=== PATIENT | male | born 1990 | race Asian ===

== ENCOUNTER 2018-05-26 10:19 | Emergency (ER) | payer OTHER ==
[2018-05-26 10:28] VITALS: BP 150/77; PULSE 119; TEMP 103.1; BMI 36.6
[2018-05-26] MEDS ORDERED: IBUPROFEN 600 MG TABLET (FP) PO ONE ×2 (10:33→10:44)
--- NOTE | 2018-05-26 10:43 | PDOC ---
History of Present Illness - General Chief Complaint: Respiratory Stated Complaint: FEVER/ HEADACHE/ BACK PAIN Time Seen by Provider: 05/26/18 10:32 History Source: Patient Exam Limitations: No Limitations - History of Present Illness Initial Comments: 05/26/18 11:48 Onset of fevers, chills, body aches ear congestion and headache pain since yesterday afternoon. Has progressively worsen. States temperature at home reached 104 and moist nonproductive cough started. Has taken no medication today Timing/Duration: reports: getting worse Severity: reports: mild, moderate Associated Symptoms: reports: denies symptoms, cough, fever/chills, headache, nasal congestion Past History - Travel Traveled outside of the country in the last 30 days: No Close contact w/someone who was outside of country & ill: No - Past Medical History Allergies/Adverse Reactions: Allergies Allergy/AdvReac Type Severity Reaction Status Date / Time No Known Allergies Allergy Verified 05/26/18 10:24 Home Medications: Ambulatory Orders Oseltamivir Phosphate [Tamiflu -] 75 mg PO BID #10 capsule 05/26/18 COPD: No - Suicide/Smoking/Psychosocial Hx Smoking Status: No Smoking History: Never smoked Number of Cigarettes Smoked Daily: 0 Review of Systems - Review of Systems Able to Perform ROS?: Yes Is the patient limited Mexican proficient: Yes Constitutional: Yes: Symptoms Reported, See HPI, Fever, Malaise HEENTM: Yes: Symptoms Reported, See HPI, Nose Congestion Respiratory: Yes: Symptoms reported, See HPI, Cough All Other Systems: Reviewed and Negative *Physical Exam - Vital Signs Last Vital Signs Temp Pulse Resp BP Pulse Ox 103.1 F H 119 H 20 150/77 99 05/26/18 10:22 05/26/18 10:22 05/26/18 10:22 05/26/18 10:22 05/26/18 10:22 - Physical Exam Comments: 05/26/18 11:49 GENERAL: [ The pateint is awake, alert, and appropriately interactive.] EYES: [The pupils are equal, round, and reactive to light, with clear, conjunctiva.but glassy] NOSE: [The nose with clear drainage EARS: [The ear canals and tympanic membranes are congested but landmarks easily visualed ] THROAT: [The oropharynx is clear with erythema, no exudates. The mucous membranes are moist.] NECK: [The neck is supple with mildly tender adenopathy, no menigemous] CHEST: [The lungs are coarse but clear without crackles, or wheezes.] HEART: [Heart is regular rhythm, with normal S1 and S2, no murmurs.] ABDOMEN: [The abdomen is soft and nontender with normal bowel sounds. There is no organomegaly and no mass. There is no guarding or rebound.] EXTREMITIES: [Extremities are normal.] NEURO: [Behavior is normal for age.cranky but easily, Tone is normal.] SKIN: [Skin is unremarkable without rash or swelling. There is no bruising, and there are no other signs of injury.] General Appearance: Yes: Nourished, Appropriately Dressed HEENT: positive: CHRIS, Normal ENT Inspection, TMs Normal, Pharynx Normal, Rhinorrhea *DC/Admit/Observation/Transfer Diagnosis at time of Disposition: Influenzal acute upper respiratory infection - Discharge Dispostion Disposition: HOME Condition at time of disposition: Stable Decision to Admit order: No - Prescriptions Prescriptions: Oseltamivir Phosphate [Tamiflu -] 75 mg PO BID #10 capsule - Referrals Referrals: Chandu Alvarez MD [Primary Care Provider] - - Patient Instructions Printed Discharge Instructions: DI for Viral Upper Respiratory Infection -- Adult Additional Instructions: Rest, drink lots of fluids: Teas, water, soups, Pedialyte Saltwater gargles Steamy showers/seem to face break up mucus Old-fashioned treatments help! Avoid contact with others until fevers and cough resolved as this is very contagious Lots of handwashing and good hygiene Continue [id number] medications for symptomatic relief Tylenol or Motrin for fever and pain Take all of Tamiflu as directed: 1 tab every 12 hours for 5 days Followup with private physician in one to 2 days as needed or if worsening Return to emergency department for worsened symptoms, fevers, dehydration Influenza takes between 5 and 7 days for resolution To not participate in any activity, work, or school until fevers and cough are gone for at least one day - Post Discharge Activity
== END 2018-05-26 10:48 | disposition home or self-care (01) ==
LOC: JER 10:19 → JERFT 10:19
DX: J11.1 Influenza due to unidentified influenza virus with other respiratory manifestations (principal)
CPT/HCPCS: 99281-25

== ENCOUNTER 2019-03-25 22:36 | Emergency (ER) | payer OTHER ==
--- NOTE | 2019-03-25 22:40 | PDOC ---
History of Present Illness - General Chief Complaint: Pain Stated Complaint: UPPER ABDOMINAL BURNING Time Seen by Provider: 03/25/19 22:40 History Source: Patient Exam Limitations: No Limitations - History of Present Illness Initial Comments: 03/25/19 22:40 HPI 28 YOM with h/o obesity presenting with 1 month of epigastric abdominal "burning " sensation - a/w cough and lying supine. pt states worse at nighttime when he lies flat. He has had approx 3-4 episodes this month of epigastric heartburn discomfort. Of note, pt states last night he was watching movie laying supine when he had an episode of abdominal "burning" a/w burping and feeling gassy. he admits to gaining weight in the last several months, symptoms exacerbated by greasy/fatty and spicy foods. He ate burger last night prior to onset of symptoms. no meds taken. he called PMD earlier this week, but was unable to get an appointment today, so he came to the ED for evaluation, and has yet to make an appointment with his primary doctor. Denies fever, chills, chest pain, SOB, palpitation, dizziness, weakness, N, V, D , bladder and bowel problems, focal weakness/paresthesias, leg swelling/pain, rash. No sick contacts or travel. No new changes in medications. No suspicious food intake Allergies: None Past Medical History/PSH: none Social history: +vaping, occasional alcohol Meds: none PMD: Dr Alvarez Review of systems Constitutional: no fevers or chills. No weakness HEENT: no headache or dizziness. No congestion. No visual/hearing disturbances. CVS: no cp or syncope. Resp: no sob. +cough. Gastrointestinal: +abdominal pain, +heartburn. No nausea, vomiting, diarrhea. Genitourinary: no urinary sx, no frequency or urgency or hematuria. MUSCULOSKELETAL: No joint pain and swelling. No neck or back pain. SKIN: no redness or skin changes, no discharge, no rash. No wounds. Hematologic: no easy bruising/bleeding. NEUROLOGIC: No headache, dizziness, LOC or altered mental status. No weakness, numbness or tingling. Psych: no anxiety or depression Allergic/Immunologic: no allergies All other systems reviewed and negative, or as documented in HPI. Physical exam General: Well appearing, awake and alert, NAD. HEENT: NCAT, PERRL, EOMI, clear conjunctiva, anicteric, moist mucus membranes, clear oropharynx, no oral lesions.. Neck: neck supple, FROM Resp: CTAB, normal and even respirations, no respiratory distress CVS: RRR, no murmurs, 2+ peripheral pulses throughout, no peripheral edema Abdomen: soft, NTND, no rebound or guarding. obese abdomen, abdominal striae present. no rebound or guarding. no CVAT. Back: nontender, normal inspection and ROM MSK: no edema, DANIEL x4, ROM intact. No clubbing or cyanosis. normal bulk and tone. Extremities: no calf tenderness Neuro: alert, oriented appropriately; no focal neurologic deficits Psych: Calm and cooperative Skin: warm and well perfused, cap refill <2 sec, normal color, no rash or skin discoloration. 03/25/19 22:56 03/25/19 23:02 Past History - Past Medical History Allergies/Adverse Reactions: Allergies Allergy/AdvReac Type Severity Reaction Status Date / Time No Known Allergies Allergy Verified 03/25/19 22:42 Home Medications: Ambulatory Orders Famotidine [Pepcid -] 20 mg PO BID #14 tablet 03/25/19 Mag Hydrox/Al Hydrox/Simeth [Mylanta Suspension -] 30 ml PO Q6H PRN #1 bottle COPD: No - Psycho Social/Smoking Cessation Hx Smoking Status: No Smoking History: Never smoked Number of Cigarettes Smoked Daily: 0 Medical Decision Making - Medical Decision Making 03/25/19 23:06 Vital Signs Temp Pulse Resp BP Pulse Ox 98.5 F 92 H 16 146/91 100 03/25/19 22:45 03/25/19 22:45 03/25/19 22:45 03/25/19 22:45 03/25/19 22:45 DDx: GERD, PUD, esophageal spasm, pancreatitis, hepatitis, constipation, colitis, gastroenteritis, cholecystitis, UTI, obstruction, medication side effect, hernia, appendicitis, diverticulitis, . msk strain, mesenteric adenitis , psoas abscess. - pt without bleeding. he has no abdominal tenderness, no epigastric or RUQ/ chambers's sign, so doubt mariela. no mcburney's point tenderness, so doubt appy. no lower quad tenderness. doubt hepatitis/pancreatitis. relatively benign abdominal exam. normal BMs. no urinary sx defer testing. no cp or sob. cough is likely related to his heartburn, with clinical findings suggestive of heartburn/gastritis, GERD with food related triggers, advised to monitor food intake, weight loss and diet modifications, avoid trigges for GERD, diet instructions given. VS reviewed and wnl. The patient appears comfortable and states that pain is improved, abdomen benign. Given medications maalox, viscous lido and pepcid, with clinical improvement. Tolerating oral intake. Vital signs reviewed and are normal. On repeat physical exam, the abdomen is soft and nontender, no suggestive findings for acute abdominal process at this time. no indications for labs at this time or imaging. Pt to be discharged in stable condition. Patient and family made aware of clinical impression, treatment recommendations and disposition plan, return precautions discussed (including but not limited to new or persistent/worsening symptoms, pain, fevers, or signs of infection, chest pain, respiratory distress , inability to tolerate oral intake, dehydration, syncope, or neurologic changes ). Follow up with PMD - Dr Alvarez and/or GI specialist as recommended, follow up information provided, take medications as instructed for duration of time. continue with supportive care, avoid triggers and precipitants. All questions answered to patient's satisfaction and expressed understanding and comfort with this. At the time of discharge, the patient is alert, clinically improved, tolerating po and verbalizes understanding of instructions, satisfied with the care received and felt comfortable with the plan. Patient does not suffer from an acute life-threatening medical condition at this time and is safe for outpatient follow-up. Discharge - Discharge Information Problems reviewed: Yes Clinical Impression/Diagnosis: Epigastric burning sensation Condition: Stable Disposition: HOME - Admission No - Additional Discharge Information Prescriptions: Famotidine [Pepcid -] 20 mg PO BID #14 tablet Mag Hydrox/Al Hydrox/Simeth [Mylanta Suspension -] 30 ml PO Q6H PRN #1 bottle PRN Reason: heartburn - Follow up/Referral Referrals: Chandu Alvarez MD [Staff Physician] - Johnathan Weir DO [Staff Physician] - Betty Zarate MD [Staff Physician] - Geovanny Kennedy MD [Staff Physician] - - Patient Discharge Instructions Patient Printed Discharge Instructions: Heartburn -- Overview, GERD Diet Additional Instructions: 1) Please follow-up with your primary care doctor in the next 1-2 days. Please call tomorrow for for any urgent issues. follow up with Dr Alvarez as well as gastroenterologists. referrals given 2) You were given a copy of the tests performed today. Please bring the results with you and review them with your primary care doctor. 3) If you have any worsening of symptoms or any other concerns please return to the ED immediately. Return if worsening symptoms including fevers, headache, vomiting, visual or hearing disturbances, abdominal pain, chest pain, shortness of breath, syncope, dehydration, inability to take things by mouth/vomiting, altered mental status, or worsening concerning symptoms. 4) Please continue taking your home medications as directed. your medications on discharge include Maalox or Mylanta every 6 hours as needed for heartburn symptoms and take it with your meals, as well as Pepcid twice a day as this is an antacid, do not drink alcohol with your medications. Stay well hydrated and rest adequately. Make an appointment. If you cannot follow-up with your primary care doctor please return to the ED avoid certain foods such as fatty greasy foods, spicy foods, chocolate, coffee or anything that can cause your heartburn. keep a food diary diet and exercise/weight loss will also help with symptoms sleep with pillows to lay more upright to prevent your heartburn at nighttime - Post Discharge Activity
[2019-03-25 22:53] VITALS: BP 146/91; PULSE 92; TEMP 98.5; BMI 38.6
[2019-03-25] MEDS ORDERED: LIDOCAINE VISCOUS 2% ORAL/TOP 20 ML UNIT-DOSE CUP MM ONE (22:56)
[2019-03-25] MEDS ORDERED: MAG HYDROX/AL HYDROX/SIMETH 30 ML UNIT-DOSE CUP PO ONE (22:56)
[2019-03-25] MEDS ORDERED: FAMOTIDINE 20 MG TABLET PO ONE (22:56)
[2019-03-25] MEDS ORDERED: LIDOCAINE VISCOUS 2% ORAL/TOP 20 ML UNIT-DOSE CUP ONE (22:58)
[2019-03-25] MEDS ORDERED: FAMOTIDINE 20 MG TABLET ONE (22:58)
[2019-03-25] MEDS ORDERED: MAG HYDROX/AL HYDROX/SIMETH 30 ML UNIT-DOSE CUP ONE (22:58)
== END 2019-03-25 23:13 | disposition home or self-care (01) ==
LOC: FER 22:36
DX: R10.13 Epigastric pain (principal)
CPT/HCPCS: 99283-25

== ENCOUNTER 2019-12-21 15:00 | Emergency (ER) | payer OTHER ==
[2019-12-21 15:17] VITALS: BMI 48.8
[2019-12-21 15:28] VITALS: BP 159/89; PULSE 74; TEMP 98.1
== END 2019-12-21 17:16 | disposition home or self-care (01) ==
LOC: FER 15:00
DX: S93.402A Sprain of unspecified ligament of left ankle, initial encounter (principal)
CPT/HCPCS: 73610-TC-LT-FY; 73630-TC-LT; 99283-25